=== PATIENT | female | born 1950 | race Caucasian/White ===

== ENCOUNTER → 2016-10-18 | Outpatient (REF) | payer OTHER ==
[~2016-10-18] MED LIST: ASPIRIN PO; CALCTAB93 PO; FISHCAP PO; FLUOXETINE PO; IRONTAB3; MULTCAP PO; PERCOCET PO; PRIL40CA PO; PRILOSEC PO; PROZ20CA11 PO; TRAMADOL PO; TYLE650T30 PO; VICODAN PO; VITAMIN D PO; VITATAB11 SL
[2016-10-18 12:39] LABS: BASO % 0.9 % (0.0-1.0); EOS # 0.3 K/mm3 (0.0-0.50); EOS % 6.6 % (0.0-3.0); LARGE UNSTAINED CELL # 0.2 K/mm3 (0.0-0.4); LARGE UNSTAINED CELL % 3.3 % (0.0-4.0); LYMPH # 1.4 K/mm3 (1.5-4.5); LYMPH % 29.8 % (24.0-44.0); MEAN CORPUSCULAR HEMOGLOBIN 32.6 pg (27.0-33.0); MEAN CORPUSCULAR HGB CONC 33.1 g/dl (32.0-36.5); MEAN CORPUSCULAR VOLUME 98.3 fl (80.0-96.0); MONO # 0.3 K/mm3 (0.0-0.8); MONO % 6.6 % (0.0-5.0); NEUTROPHILS # 2.4 K/mm3 (1.8-7.7); NEUTROPHILS % 52.9 % (36.0-66.0); PLATELET COUNT, AUTOMATED 235 k/mm3 (150-450); RED CELL DISTRIBUTION WIDTH 12.5 % (11.5-14.5); WHITE BLOOD COUNT 4.6 K/mm3 (4.0-10.0)
[2016-10-18 13:00] LABS: ALBUMIN 3.4 GM/DL (3.2-5.2); ALBUMIN/GLOBULIN RATIO 1.17 (1.00-1.93); ALKALINE PHOSPHATASE 102 U/L (45-117); ALT/SGPT 22 U/L (12-78); ANION GAP 7 MEQ/L (8-16); AST/SGOT 15 U/L (15-37); BILIRUBIN,TOTAL 0.6 MG/DL (0.2-1.0); BLOOD UREA NITROGEN 11 MG/DL (7-18); CALCIUM LEVEL 8.8 MG/DL (8.8-10.2); CARBON DIOXIDE LEVEL 28 MEQ/L (21-32); CHLORIDE LEVEL 108 MEQ/L (98-107); CHOLESTEROL LEVEL 213 MG/DL (<200); CREATININE FOR GFR 0.51 MG/DL (0.55-1.02); FERRITIN 160 NG/ML (8-252); GLOMERULAR FILTRATION RATE > 60.0 (>45); GLUCOSE, FASTING 86 MG/DL (80-110); MAGNESIUM LEVEL 2.4 MG/DL (1.8-2.4); PERCENT SATURATION 24.6 % (13.2-37.4); POTASSIUM SERUM 4.5 MEQ/L (3.5-5.1); SODIUM LEVEL 143 MEQ/L (136-145); TOTAL IRON BINDING CAPACITY 281 UG/DL (250-450); TOTAL PROTEIN 6.3 GM/DL (6.4-8.2); TRIGLYCERIDES LEVEL 55 MG/DL (<150)
[2016-10-18 13:43] LABS: VITAMIN B12 LEVEL 604 PG/ML (247-911)
[2016-10-18 13:44] LABS: FOLATE > 24.0 NG/ML (>5.4)
== END ==
LOC: M SFHCCLAY 08:01
PROVIDERS: ATTEND Nurse Practitioner Family
DX: Z98.84 Bariatric surgery status (principal); E78.4 Other hyperlipidemia; E55.9 Vitamin D deficiency, unspecified

== ENCOUNTER 2021-12-02 17:03 | Observation (INO) | payer MEDICARE, OTHER ==
[~2021-12-02] VITALS: Ht 152.4 cm; Wt 90.9 kg
[2021-12-03 01:16] LABS: BASO % 0.5 % (0.0-1.0); EOS # 0.1 10^3/uL (0.0-0.5); EOS % 0.7 % (0.0-3.0); HEMOGLOBIN 11.2 g/dl (12.0-15.5); LYMPH # 1.1 10^3/uL (1.5-5.0); LYMPH % 14.9 % (24.0-44.0); MEAN CORPUSCULAR HEMOGLOBIN 32.1 pg (27.0-33.0); MEAN CORPUSCULAR HGB CONC 33.9 g/dl (32.0-36.5); MEAN CORPUSCULAR VOLUME 94.6 fl (80.0-96.0); MONO # 0.7 10^3/uL (0.0-0.8); MONO % 8.9 % (2.0-8.0); NEUTROPHILS # 5.4 10^3/uL (1.5-8.5); NEUTROPHILS % 73.8 % (36.0-66.0); PLATELET COUNT, AUTOMATED 284 10^3/uL (150-450); RED BLOOD COUNT 3.49 10^6/uL (4.00-5.40); WHITE BLOOD COUNT 7.3 10^3/uL (4.0-10.0)
[2021-12-03 01:41] LABS: RSV AMPLIFICATION NEGATIVE (NEGATIVE)
[2021-12-03 02:07] LABS: MB/CK RELATIVE INDEX 1.85 (< OR =4)
[2021-12-03 02:23] LABS: ALBUMIN 2.8 GM/DL (3.2-5.2); ALT/SGPT 66 U/L (12-78); BILIRUBIN,DIRECT 0.4 MG/DL (0.0-0.2); BILIRUBIN,TOTAL 0.9 MG/DL (0.2-1.0); BLOOD UREA NITROGEN 32 MG/DL (7-18); CALCIUM LEVEL 8.2 MG/DL (8.8-10.2); CARBON DIOXIDE LEVEL 24 MEQ/L (21-32); CHLORIDE LEVEL 101 MEQ/L (98-107); CREATININE FOR GFR 0.81 MG/DL (0.55-1.30); GLOMERULAR FILTRATION RATE > 60.0 (>45); GLUCOSE, FASTING 96 MG/DL (70-100); NT-PRO BNP 3679 PG/ML (<125); POTASSIUM SERUM 3.5 MEQ/L (3.5-5.1); SODIUM LEVEL 134 MEQ/L (136-145); TOTAL PROTEIN 5.7 GM/DL (6.4-8.2)
[2021-12-03] MEDS ORDERED: FUROSEMIDE 40MG/4ML VIAL (J1940) IV ONE (02:35)
[2021-12-03] MEDS ORDERED: ACETAMINOPHEN TAB 650MG DOSE (2X325MG) PO ONE (03:00)
[2021-12-03] MEDS ORDERED: LISI2.5T9 PO (04:39)
[2021-12-03] MEDS ORDERED: BIOT1TAB PO (04:39)
[2021-12-03] MEDS ORDERED: ELIQ5TAB PO (04:39)
[2021-12-03] MEDS ORDERED: ASPI-161 PO (04:39)
[2021-12-03] MEDS ORDERED: FURO20TA2 PO (04:39)
[2021-12-03] MEDS ORDERED: VITATAB31 PO (04:39)
[2021-12-03] MEDS ORDERED: CITRTAB18 PO (04:39)
[2021-12-03] MEDS ORDERED: POTA1TAB14 PO (04:39)
[2021-12-03] MEDS ORDERED: METO50TA7 PO (04:39)
[2021-12-03] MEDS ORDERED: FERR325T18 PO (04:39)
[2021-12-03] MEDS ORDERED: VITA100093 PO (04:39)
[2021-12-03] MEDS ORDERED: ROSU5TAB5 PO (04:39)
[2021-12-03] MEDS ORDERED: MULTCHW12 PO (04:39)
[2021-12-03] MEDS ORDERED: TRAZ1TAB10 PO (04:39)
[2021-12-03] MEDS ORDERED: HYDR-4514 PO (04:39)
[2021-12-03] MEDS ORDERED: OMEP40CA5 PO (04:39)
[2021-12-03] MEDS ORDERED: HOME MED LIST COMPLETE! XX SCH (04:40)
[2021-12-03] MEDS ORDERED: ANEXSIA, NORCO 7.5MG/325MG TABLET(HYDROCODONE/APAP) PO PRN (04:40)
[2021-12-03] MEDS ORDERED: FLUO40CA PO (05:58)
[2021-12-03 06:22] LABS: BASO % 0.6 % (0.0-1.0); EOS # 0.1 10^3/uL (0.0-0.5); EOS % 1.3 % (0.0-3.0); HEMATOCRIT 33.4 % (36.0-47.0); HEMOGLOBIN 11.4 g/dl (12.0-15.5); LYMPH # 0.9 10^3/uL (1.5-5.0); LYMPH % 12.8 % (24.0-44.0); MEAN CORPUSCULAR HGB CONC 34.1 g/dl (32.0-36.5); MEAN CORPUSCULAR VOLUME 93.8 fl (80.0-96.0); MONO # 0.9 10^3/uL (0.0-0.8); MONO % 12.1 % (2.0-8.0); NEUTROPHILS # 5.1 10^3/uL (1.5-8.5); NEUTROPHILS % 71.9 % (36.0-66.0); PLATELET COUNT, AUTOMATED 279 10^3/uL (150-450); RED BLOOD COUNT 3.56 10^6/uL (4.00-5.40); WHITE BLOOD COUNT 7.1 10^3/uL (4.0-10.0)
[2021-12-03 06:39] LABS: INR 1.19; PROTHROMBIN TIME 15.5 SECONDS (12.7-14.5)
[2021-12-03 06:40] LABS: PARTIAL THROMBOPLASTIN TIME 35.5 SECONDS (25.9-37.0)
[2021-12-03 06:54] LABS: BLOOD UREA NITROGEN 28 MG/DL (7-18); CALCIUM LEVEL 8.5 MG/DL (8.8-10.2); CARBON DIOXIDE LEVEL 24 MEQ/L (21-32); CHLORIDE LEVEL 99 MEQ/L (98-107); CREATININE FOR GFR 0.72 MG/DL (0.55-1.30); GLOMERULAR FILTRATION RATE > 60.0 (>45); GLUCOSE, FASTING 91 MG/DL (70-100); MAGNESIUM LEVEL 1.7 MG/DL (1.8-2.4); POTASSIUM SERUM 3.4 MEQ/L (3.5-5.1); SODIUM LEVEL 134 MEQ/L (136-145)
[2021-12-03] MEDS ORDERED: ACETAMINOPHEN TAB 650MG DOSE (2X325MG) PO PRN (07:00)
[2021-12-03] MEDS ORDERED: LISINOPRIL *2.5 MG* TAB PO SCH (09:00)
[2021-12-03] MEDS ORDERED: PANTOPRAZOLE 40MG TAB (PROTONIX) PO SCH (09:00)
[2021-12-03] MEDS: ASPIRIN 81MG ENTERIC TABLET PO SCH (09:51)
[2021-12-03] MEDS: APIXABAN 5 MG TAB (ELIQUIS) PO SCH ×2 (09:51→21:36)
[2021-12-03] MEDS: FLUoxetine 20MG CAP PO SCH (09:52)
[2021-12-03] MEDS: POTASSIUM CHLORIDE 10MEQ SR TABLET PO SCH (09:52)
[2021-12-03] MEDS: FUROSEMIDE 20MG/2ML VIAL (J1940) IV SCH ×2 (09:53→17:00)
[2021-12-03] MEDS: METOPROLOL TART 50 MG TAB PO SCH ×2 (09:54→21:00)
[2021-12-03] MEDS ORDERED: POTASSIUM CHLORIDE 10MEQ SR TABLET PO ONE (11:10)
[2021-12-03 13:42] VITALS: BP 102/60
[2021-12-03 20:00] VITALS: BP 94/57
[2021-12-03] MEDS ORDERED: ROSUVASTATIN 10 MG TAB (CRESTOR) PO SCH (21:00)
[2021-12-03] MEDS ORDERED: VITAMIN D 1,000 INTERNATIONAL UNITS TABLET PO SCH (21:00)
[2021-12-03] MEDS ORDERED: traZODone 50 MG TAB PO SCH (21:00)
[2021-12-03] MEDS ORDERED: FERROUS SULFATE 325MG TAB PO SCH (21:00)
[2021-12-04 06:00] VITALS: BP 107/70
[2021-12-04] MEDS: APIXABAN 5 MG TAB (ELIQUIS) PO SCH (08:39)
[2021-12-04] MEDS: FLUoxetine 20MG CAP PO SCH (08:39)
[2021-12-04] MEDS: ASPIRIN 81MG ENTERIC TABLET PO SCH (08:39)
[2021-12-04 08:40] VITALS: BP 105/66
[2021-12-04] MEDS: METOPROLOL TART 50 MG TAB PO SCH (08:40)
[2021-12-04] MEDS: POTASSIUM CHLORIDE 10MEQ SR TABLET PO SCH (08:40)
[2021-12-04] MEDS ORDERED: OMEPRAZOLE 20MG CAP PO SCH (09:00)
== END 2021-12-04 11:59 | disposition home or self-care (01) ==
LOC: M ED 17:03 → M ED INP 17:04 → ENRESERVTM 12-03 10:07 → ENRESERVDT 12-03 10:07 → M MSPAV 12-03 13:13
PROVIDERS: ADMIT Family Medicine; ATTEND Internal Medicine
DX: I50.21 Acute systolic (congestive) heart failure (principal); I11.0 Hypertensive heart disease with heart failure; I48.91 Unspecified atrial fibrillation; D64.9 Anemia, unspecified; F32.A Depression, unspecified; G47.33 Obstructive sleep apnea (adult) (pediatric); E66.9 Obesity, unspecified; K21.9 Gastro-esophageal reflux disease without esophagitis; Z79.01 Long term (current) use of anticoagulants; Z79.82 Long term (current) use of aspirin; Z85.41 Personal history of malignant neoplasm of cervix uteri; Z87.891 Personal history of nicotine dependence; Z79.899 Other long term (current) drug therapy
CPT/HCPCS: 36415; 71046; 80048; 80076; 82550; 82553; 83735; 83880; 84484; 85025; 85610; 85730; 87631; 93005; 93041; 93306; 94760; 96374; 99285; G0378; J1940